=== PATIENT | female | born 1985 | race Caucasian/White ===

== ENCOUNTER 2018-06-05 11:37 | Inpatient (IN) | payer MEDICAID ==
[~2018-06-05] VITALS: Ht 157.5 cm; Wt 79.9 kg
[~2018-06-05 11:37] MED LIST: LIDOCAINE 2% (SDV) 5 ML INJ ONE; SEVOFLURANE 15 MIN ONE
[2018-06-05 11:48] VITALS: Ht 157.5 cm; Wt 79.9 kg
[2018-06-05] MEDS ORDERED: PREN-93 PO (11:50)
--- NOTE | 2018-06-05 12:13 | TRIAGE ---
OB Triage Datetime Report Generated by CPN: 06/05/2018 12:13 Datetime: 06/05/2018 11:57 Maternal Assessment Level of Consciousness: Fully Conscious DTR's/Clonus: DTRs 1+ Headache: Denies Blurred Vision: No Respiratory Effort: Unlabored Breath Sounds, Left: Clear and Equal Breath Sounds, Right: Clear and Equal Nausea/Vomiting: Denies RUQ Epigastric Pain: Denies Facial Edema: None Labor Evaluation Frequency: X3 Monitor Mode: External Duration (sec)2399: 50-70 Quality: Mild Pattern: Normal: <= 5 Contractions in 10 Minutes Resting Tone Vadito: Relaxed Heart Rate FHR Baseline Rate: 140 Monitor Mode: External US Variability: Moderate 6-25 bpm Accelerations: 10X10 Decelerations: Late; Variable Category: Category II Comments: BASELINE OF 140 BPM GOING DOWN FOR ABOUT 90 SEC AND COMING UP TO BASE LINE AFTER INTERVEN TIONS Pain Assessment Pain Scale: 9 Pain Presence: Intermittent Pain Type: Cramping Pain Location: Back Pain Goal: 3 Membrane Status: Bulging Datetime: 06/05/2018 11:46 Vaginal Exam Dilatation (cms): 3.0 Effacement (%): 90 Station: -2 Exam By: BERNARDO MAR Membrane Status: Bulging Vaginal Bleeding: Normal Show Cervix, Consistency: Soft Cervix, Position: Midposition Presentation 'A': Cephalic Datetime: 06/05/2018 11:43 Assessment Type: Triage Maternal Assessment Level of Consciousness: Fully Conscious DTR's/Clonus: DTRs 2+; No Clonus Headache: Denies Blurred Vision: No Respiratory Effort: Unlabored; Regular Rhythm; Equal Expansion Breath Sounds, Left: Clear and Equal Breath Sounds, Right: Clear and Equal Nausea/Vomiting: Denies RUQ Epigastric Pain: Denies Lower Extremities Edema: None Degree: None Upper Extremities Edema: None Degree: None Facial Edema: None Fall Risk Assessment History of Falling: (0) No Secondary Diagnosis: (0) No Ambulatory Aid: (0) Bedrest/Nurse Assist IV Therapy: (0) No Gait: (0) Normal/Bedrest/Immobile Mental Status: (0) Oriented to Own Ability Fall Score: 0 Fall Risk Score Definition: No Risk: No action required Datetime: 06/05/2018 11:41 EGA: 39.5 Datetime: 06/05/2018 11:40 Time of Arrival: 06/05/2018 11:40 Arrived By: Wheelchair Arrived From: Home Chief Complaint: PT CAME IN C/O LABOR Movement: Present Contractions: Irregular Rupture of Membranes: Denies Vaginal Discharge: Denies Recent Sexual Intercouse: Denies Abdominal Trauma: Not Applicable Additional Patient Complaints: NONE Time Provider Notified: 06/05/2018 11:53 Provider Notified: FLOR Initial Plan: DANIEL PICKARD
[2018-06-05] MEDS ORDERED: morphine 10 MG INJ ONE (12:35)
[2018-06-05] MEDS ORDERED: PROPOFOL 20 ML ONE (12:43)
[2018-06-05] MEDS ORDERED: ROCURONIUM 50 MG INJ ONE (12:43)
[2018-06-05] MEDS ORDERED: DEXAMETHASONE 4 MG/ML 1 ML INJ ONE (12:44)
[2018-06-05] MEDS ORDERED: OXYTOCIN 30 UNITS/LR 500 ML IV ONE (12:44)
[2018-06-05] MEDS ORDERED: SUCCINYLCHOLINE CHLORIDE 100 MG/5 ML SYG IV ONE (12:44)
[2018-06-05] MEDS ORDERED: ONDANSETRON 4 MG INJ ONE (12:46)
[2018-06-05] MEDS ORDERED: SUGAMMADEX SODIUM 200 MG/2 ML VIAL IV ONE (12:50)
--- NOTE | 2018-06-05 12:58 | OPPN ---
Date/Time of Note Date/Time of Note DATE: 06/05/18 TIME: 12:57 Operative Report Planned Procedure Free Text/Dictation called by nurses for bradycardia that is not recovering Procedure date Jun 05, 2018 Procedure(s) Primary c/section Performed by see signature line Pmo Project Manager: NARDA HENNING 2nd Pmo Project Manager none Pre-procedure diagnosis bradycardia down to 40,Not recovering [id number] Anesthesia Type: Wkxzl3d general Post-Procedure Post-procedure diagnosis same Findings Live Baby [], Apgars [] and [], weight [], position [], [] presentation []cord. Estimated Blood Loss: 600 - 700 mls Specimen(s) none Grafts/Implant(s) none Complication(s) none ANTONINO LACY M.D. Jun 05, 2018 12:58
--- NOTE | 2018-06-05 13:10 | PREAC ---
Date/Time of Note Date/Time of Note DATE: 06/05/18 TIME: 13:08 Anesthesia Eval and Record Evaluation Time Pre-Procedure Interview DATE: 06/05/18 TIME: 12:28 Age 33 Sex female NPO: 8 hrs Preoperative diagnosis bradycardia, prolonged deceleration Planned procedure emergency c section Past Medical History Past Medical History: Includes : Other ( bradycardia emergent c section) Surgery & Anesthesia Issues No known issue Meds Anticoagulation: No Beta Ilana within 24 hr: No Reason Beta Ilana not given: Pt. not on B-Ilana Reported Medications Vit No.124/Iron/FA ( Vitamin Tablet) 1 Each Tablet, 1 EACH PO, TAB 06/05/18 Meds reviewed: Yes Allergies Coded Allergies: No Known Allergy (Unverified , 06/05/18) Allergies Reviewed: Yes Labs/Studies Labs Reviewed: Reviewed by anesthesiologist test: Positive Pre-procedure Exam Airway: Adequate mouth opening, Adequate thyromental dist Mallampati: Mallampati II Teeth: Normal Lung: Normal Heart: Normal ASA Physical Status ASA physical status: 3 Emergency: E Planned Anesthetic General/MAC: ETT Planned Pain Management Parenteral pain med Pre-operative Attestations Prior to commencing anesthesia and surgery, the patient was re-evaluated, there was verification of: *The patient's identity *The results of appropriate recent lab work and preoperative vital signs *The above evaluation not changing prior to induction *Anesthetic plan, risk benefits, alternative and complications discussed with patient/family; questions answered; patient/family understands, accepts and wishes to proceed. KIERA MICHELLE Jun 05, 2018 13:10
--- NOTE | 2018-06-05 13:12 | PAC ---
Date/Time of Note Date/Time of Note DATE: 06/05/18 TIME: 13:11 Post-Anesthesia Notes Post-Anesthesia Note Last documented vital signs temp 97.6 bp 145/78 p 78 O2 sat 97% Activity: WNL Respiratory function: WNL Cardiovascular function: WNL Mental status: Baseline Pain reasonably controlled: Yes Hydration appropriate: Yes Nausea/Vomiting absent: Yes KIERA MICHELLE Jun 05, 2018 13:12
[2018-06-05] MEDS ORDERED: LACTATED RINGER'S 1,000 ML IV SCH (13:15)
[2018-06-05] MEDS ORDERED: OXYTOCIN 30 UNITS/LR 500 ML IV SCH ×2 (13:25→18:10)
[2018-06-05] MEDS ORDERED: CEFAZOLIN 2 GM/50 ML (PMX) 50 ML IVPB SCH ×2 (13:30→18:30)
[2018-06-05] MEDS ORDERED: ONDANSETRON 4 MG INJ IV PRN ×2 (13:30→16:00)
[2018-06-05] MEDS ORDERED: FENTAnyl 50 MCG/ML VIAL IV PRN ×3 (13:30)
[2018-06-05] MEDS ORDERED: CARBOPROST 250 MCG INJ IM PRN ×2 (13:30→18:30)
[2018-06-05] MEDS ORDERED: KETOROLAC 30 MG INJ IV PRN ×2 (13:30→16:00)
[2018-06-05] MEDS ORDERED: OXYTOCIN 30 UNITS/LR 500 ML IV PRN ×2 (13:30→18:30)
[2018-06-05] MEDS ORDERED: EPHEDrine SULFATE 50 MG/5 ML SYG IV PRN (13:30)
[2018-06-05] MEDS ORDERED: hydrALAzine 20 MG INJ IV PRN (13:30)
[2018-06-05] MEDS ORDERED: DIPHENHYDRAMINE 50 MG INJ IV PRN ×2 (13:30→16:00)
[2018-06-05] MEDS ORDERED: LABETALOL HCL 20MG INJ IV PRN (13:30)
[2018-06-05] MEDS ORDERED: METOCLOPRAMIDE 10 MG INJ IV PRN (13:30)
[2018-06-05] MEDS ORDERED: METHYLERGONOVINE 0.2 MG INJ IM PRN ×2 (13:30→18:30)
[2018-06-05] MEDS ORDERED: HYDROmorphONE 1 MG/5 ML IV SYRINGE IV PRN ×3 (13:30)
[2018-06-05] MEDS ORDERED: MISOPROSTOL 200 MCG TAB PR PRN ×2 (13:30→18:30)
[2018-06-05] MEDS ORDERED: MIDAZOLAM 1 MG/ML 2 ML INJ IV PRN (13:30)
[2018-06-05] MEDS ORDERED: MEPERIDINE 25 MG INJ IV PRN (13:30)
--- NOTE | 2018-06-05 15:49 | PAC ---
Date/Time of Note Date/Time of Note DATE: 06/05/18 TIME: 15:48 Post-Anesthesia Notes Post-Anesthesia Note Last documented vital signs temp 97.8 p 78 bp 117/74 O2 sat 98 Activity: WNL Respiratory function: WNL Cardiovascular function: WNL Mental status: Baseline Pain reasonably controlled: Yes Hydration appropriate: Yes Nausea/Vomiting absent: Yes KIERA MICHELLE Jun 05, 2018 15:49
[2018-06-05] MEDS ORDERED: NALOXONE (0.4 MG/ML) INJ IV PRN (16:00)
[2018-06-05] MEDS ORDERED: ZOLPIDEM 5 MG TAB PO PRN (16:00)
[2018-06-05] MEDS ORDERED: OXYCODONE/ACETAMINOPHEN (5/325) TAB PO PRN ×3 (16:00→18:30)
[2018-06-05] MEDS ORDERED: HYDROmorphONE 0.5 MG/0.5 ML SYG IV PRN ×2 (16:00)
--- NOTE | 2018-06-05 16:12 | PREOPHP ---
DATE OF ADMISSION: 06/05/2018 DATE OF PROCEDURE: 06/05/2018. HISTORY OF PRESENT ILLNESS: This is a 33-year-old, 1 para 0, at 39 weeks and 5 days' gestati onal age, admitted by another provider, by her private physician. Then, I was called by the nurse th at the patient had a bradycardia that is not recovering. I attended the room and heart r ate was around 40 and the bradycardia was not recovering. Immediate decision was made to do a stat c esarean section. The patient was immediately transferred to the operating room. The need for the C- section was discussed with the family and patient and they verbally agreed to the plan. PAST MEDICAL HISTORY: Denies. PAST SURGICAL HISTORY: Denies. ALLERGIES: NKDA. PHYSICAL EXAMINATION: VITAL SIGNS: Stable. ABDOMEN: Gravid. VAGINAL EXAM: She was 3 cm, 70% effaced and position of the head was -2. ASSESSMENT AND PLAN: A 33-year-old, 1 para 0, at 39 weeks and 5 days' gestational age with f etal bradycardia that did is not recovering. The decision was made to do a stat section. R isks and benefits discussed with the patient and the patient was taken to the operating room. Dictated By: ANTONINO BAHENA/NTS Conf#: [id number] DID#: [id number] CC: ESTHER RAY MD;*EndCC*
--- NOTE | 2018-06-05 16:23 | OPR ---
DATE OF OPERATION: 06/05/2018 PREOPERATIVE DIAGNOSIS: bradycardia that did not recover down to 40, category 3 tracing. POSTOPERATIVE DIAGNOSIS: bradycardia that did not recover down to, category 3 tracing. OPERATION PERFORMED: Primary section. ATTENDING SURGEON: Jey Lacy MD TRACTOR DRIVER: Kelechi Guo MD ANESTHESIOLOGIST: Rolf Solorzano MD ANESTHESIA: General. COMPLICATIONS: None. ESTIMATED BLOOD LOSS: 600 mL TECHNIQUE: The patient was taken to the operating room where general anesthesia was found to be adeq uate. The patient was placed in supine position. After prep and drape, a Pfannenstiel incision was made 2 cm above the symphysis pubis, which was extended to the underlying fascia. Fascia was nicked in the midline. Fascial incision was extended bilaterally. Muscle was in the midline. Pe ritoneum was entered sharply. Peritoneal incision was extended. Bladder blade was placed inside the pelvic cavity. Lower uterine segment incision was made using a vacuum. Baby was delivered vertex a nd handed to the NICU team. Cord gases sent. Cord blood sent. Placenta was removed manually. Uter us was exteriorized. Intrauterine cavity was cleaned using 2 sponges. There was a thick meconium ar ound the baby. There was some endometriosis ____ on the uterus ____ was cauterized. The lower uteri ne segment incision was closed in 2 layers using 0 looped PDS sutures. Gutters were cleaned. Uterus was inserted inside the abdominal cavity. A piece of Fibrillar was placed on top of the incision. Peritoneum and muscles were reapproximated using 2-0 chromic sutures. Fascia was closed in a running nonlocking fashion using 0 looped PDS sutures. Subcutaneous tissue was closed using plain sutures. Skin was closed using Insorb and Dermabond was placed on top of the incision. The patient tolerated the procedure well and was transferred to recovery room in stable condition. There was no complicat ion regarding this surgery. Dictated By: JEY LACY MD RG/NTS Conf#: [id number] DID#: [id number] CC: ESTHER RAY MD;*EndCC*
[2018-06-05 16:30] VITALS: BP 128/71; PULSE 70; RESP 18
[2018-06-05] MEDS: HYDROmorphONE 0.2 MG/ML PCA IV SCH ×2 (17:11→23:38)
[2018-06-05 18:20] VITALS: BP 122/65; PULSE 77; RESP 20
[2018-06-05] MEDS ORDERED: NACL 0.9% 3 ML SYG IV SCH (18:30)
[2018-06-05 19:50] VITALS: BP 111/55; PULSE 77; RESP 18
[2018-06-05] MEDS: SENNA/DOCUSATE NA (8.6MG/50MG) TAB PO SCH (21:00)
[2018-06-06] VITALS: BP 100/58; PULSE 75; RESP 17
[2018-06-06] MEDS: CEFAZOLIN 2 GM/50 ML (PMX) 50 ML IVPB SCH ×2 (00:32→09:34)
[2018-06-06 04:00] VITALS: BP 100/51; PULSE 80; RESP 18
[2018-06-06] MEDS: LACTATED RINGER'S 1,000 ML IV SCH ×2 (05:44→13:15)
[2018-06-06 08:00] VITALS: BP 102/55; PULSE 73; RESP 17
[2018-06-06] MEDS: SENNA/DOCUSATE NA (8.6MG/50MG) TAB PO SCH ×2 (09:00→21:47)
[2018-06-06] MEDS ORDERED: LIDOCAINE/MYLANTA 40 ML BTL PO ONE (10:30)
[2018-06-06] MEDS: IBUPROFEN 600 MG TAB PO SCH ×3 (12:37→23:57)
[2018-06-06 16:00] VITALS: BP 105/59; PULSE 71; RESP 18
--- NOTE | 2018-06-06 18:30 | PN ---
Date/Time of Note Date/Time of Note DATE: 06/06/18 TIME: 18:26 OB Subjective Subjective Subjective POD#1 Patient is doing well. She denies nausea, vomiting, shortness of breath, chest pain, headache. She has been ambulating without difficulty, tolerating regular diet. Pain is well controlled on current medications OB Objective Objective Objective Vital Signs Date Temp Pulse Resp B/P (MAP) Pulse Ox O2 O2 Flow FiO2 Time Delivery Rate 06/06/18 98.0 71 18 105/59 Room Air 16:00 (74) 06/06/18 97 08:00 General: AAO X 3, comfortable, NAD, appropriate mood and affect. Heart: RRR +S1, +S2, no murmurs. Lungs: Clear to auscultation (B/L), no rales, rhonchi or wheezing. ABD: +BS. Soft, non-tender. Uterus 2 cm below umbilicus Incision: Dry dressing Flank: No CVA tenderness (B/L) LE: Mild edema. No clubbing, cyanosis, thigh or calf tenderness (B/L). Homans 'sign is negative OB Assessment/Plan Other plan: 33 years old 1 para 1001 s/p primary delivery. POD#1 - AF, VSS - Contraception methods with R/B/A/FR discussed - Continue care - Encourage ambulation and using incentive spirometry - CBC result discussed with pt. Repeat CBC on 06/08/18 NARDA HENNING Jun 06, 2018 18:30
[2018-06-06 19:35] VITALS: BP 120/73; PULSE 99; RESP 18
[2018-06-07] MEDS: PIPER-TAZO 3.375 GM IV (PMX) 100 ML IVPB SCH ×3 (01:56→17:53)
[2018-06-07 03:40] VITALS: BP 103/65; PULSE 76; RESP 20
[2018-06-07] MEDS: IBUPROFEN 600 MG TAB PO SCH ×3 (05:44→17:08)
[2018-06-07 08:00] VITALS: BP 124/71; PULSE 77; RESP 16
--- NOTE | 2018-06-07 09:00 | OPPN ---
Date/Time of Note Date/Time of Note DATE: 06/07/18 TIME: 08:59 Anesthesia Follow up Anesthesia Follow up Last documented vital signs Vital Signs Date Temp Pulse Resp B/P (MAP) Pulse Ox O2 O2 Flow FiO2 Time Delivery Rate 06/07/18 98.9 76 20 103/65 Room Air 03:40 (78) 06/06/18 97 08:00 Comments satisfactory pain management with intrathecal duramorph analgesia. no complications KIERA MICHELLE Jun 07, 2018 09:00
--- NOTE | 2018-06-07 09:23 | OPPN ---
Date/Time of Note Date/Time of Note DATE: 06/07/18 TIME: 09:22 Anesthesia Follow up Anesthesia Follow up Last documented vital signs Vital Signs Date Temp Pulse Resp B/P (MAP) Pulse Ox O2 O2 Flow FiO2 Time Delivery Rate 06/07/18 98.9 76 20 103/65 Room Air 03:40 (78) 06/06/18 97 08:00 Respiratory function: WNL Cardiovascular function: WNL Comments satisfactory post operative pain management with intrathecal duramorph KIERA MICHELLE Jun 07, 2018 09:23
[2018-06-07] MEDS: SENNA/DOCUSATE NA (8.6MG/50MG) TAB PO SCH ×2 (10:32→20:55)
--- NOTE | 2018-06-07 14:35 | PN ---
Date/Time of Note Date/Time of Note DATE: 06/07/18 TIME: 14:32 OB Subjective Subjective Subjective Patient pumping. Pain well controlled with p.o. pain medication. Passed flat us. Urinated. Denies any chest pain or shortness of breath OB Objective Objective Objective GA: A&O, NAD Abdomen : Soft, appropriate tenderness in the incision noted. Incision: Clean dry and intact Breast: No evidence of mastitis or fissure Extremity: No calf tenderness, no click no edema no cord palpable Lungs: Clear to auscultation bilaterally CV: RRR VS - Last 72 Hours, by Label Date Temp Pulse Resp B/P (MAP) Pulse Ox O2 O2 Flow FiO2 Time Delivery Rate 06/07/18 98.9 77 16 124/71 Room Air 08:00 (88) 06/07/18 98.9 76 20 103/65 Room Air 03:40 (78) 06/06/18 98.9 99 18 120/73 Room Air 19:35 (89) 06/06/18 98.0 71 18 105/59 Room Air 16:00 (74) 06/06/18 98.1 73 17 102/55 97 Room Air 08:00 (71) 06/06/18 98.9 80 18 100/51 95 04:00 (67) 06/06/18 98.3 75 17 100/58 98 00:00 (72) 06/05/18 98.2 77 18 111/55 96 19:50 (73) 06/05/18 98.2 77 20 122/65 97 Room Air 18:20 (84) 06/05/18 97.9 70 18 128/71 94 Room Air 16:30 (90) OB Assessment/Plan Other Assessment: POD #2 S/p repeat section Leukocytosis, unclear etiology, on Abx, UA , CBC today Routine post op care Continue antibiotics follow up with the results REBEKA CRESPO MD Jun 07, 2018 14:35
[2018-06-07 15:37] VITALS: BP 106/68; PULSE 75; RESP 18
[2018-06-07 20:22] VITALS: BP 104/54; PULSE 74; RESP 18
[2018-06-08] MEDS: PIPER-TAZO 3.375 GM IV (PMX) 100 ML IVPB SCH ×2 (02:06→10:31)
[2018-06-08] MEDS: IBUPROFEN 600 MG TAB PO SCH ×4 (02:13→18:16)
[2018-06-08 04:00] VITALS: BP 99/51; PULSE 83; RESP 18
[2018-06-08 08:20] VITALS: BP 113/66; PULSE 73; RESP 18
[2018-06-08] MEDS ORDERED: DIPHTH/TET/ACEL PERTUSS (ADULT) 0.5 ML VIAL IM* ONE (09:00)
[2018-06-08] MEDS: SENNA/DOCUSATE NA (8.6MG/50MG) TAB PO SCH (10:27)
[2018-06-08 15:45] VITALS: BP 122/70; PULSE 68; RESP 16
--- NOTE | 2018-06-08 18:01 | DS ---
Date/Time of Note Date/Time of Note DATE: 06/08/18 TIME: 17:59 Obstetrical Discharge Record Final Diagnosis Final Diagnosis: Term delivered Other Final Diagnosis profound bradycardia Section Section: Primary Complications Augmentation: No Induction: No Rupture of Membranes: No Condition on Discharge Physical Assessment [place]als[place] [address] Voiding: Yes Bowel Movement: Yes Breast: Soft, non-tender Fundus: Firm Abdomen and Incision: soft wound dry Episiotomy: n/a Calf Tenderness: No Patient Condition: Stable ALVIN BADILLO MD Jun 08, 2018 18:01
--- NOTE | 2018-06-08 18:04 | PD.PPDC ---
MEAT SEAFOOD ASSOCIATE Discharge Instruction Diagnosis Zeqxw2Sj Final Diagnosis: Njosa6z s/p primary c/s for CAT III Condition Navrp3Wm Patient Condition: Objya3f Stable Diet Ximno5Bj Diet: Lyfhy5l Resume Regular Diet Activity/Restrictions Skieb1Aa Activity: Jnaxz0o May Shower Jcmkc2Vd Restrictions: Hwmga4v No Exercising No Lifting Minimize Stair-climbing No Sexual Activity Nothing in the Vagina No [place] No Tampons, douche Wound/Drain Care Instructions [id number] Wound/Drain Care Instructions: Vzsze1c Wash with soap and water Keep clean and dry Follow-up Follow-up with Physician: 2, Week/Weeks Return to clinic for Xbhfy4Xa [employer] OPERATOR Instructions: Mwffn7k Fever greater than 101 Chills Excessive Vaginal Bleeding More than 2 pads per hour Unable to tolerate diet Mvjdt8Gg OB Instructions: Wxtlm9w Breast Tenderness Depression Blurried Vision Headache [id number] Surgical Instructions: Auryw5s Incisional Drainage Incisional Redness ALVIN BADILLO MD Jun 08, 2018 18:04
--- NOTE | 2018-06-09 20:49 | DELSUM ---
Delivery Summary A-C Datetime Report Generated by CPN: 06/09/2018 20:49 DELIVERY PERSONNEL Film Replacement Orderer: Soleimani, Carmella MATERNAL INFORMATION Delivery Anesthesia: General Medications in Delivery: SEE ANESTHESIA RECORD Placenta Cultured: Yes Maternal Complications: Other Other Maternal Complications: FHT DECELS LABOR SUMMARY EDC: 06/07/2018 00:00 No. Babies in Womb: 1 Attempted: No Labor Anesthesia: None LABOR INFORMATION Reason for Induction: Not Applicable Oxytocin: N/A Group B Beta Strep: Negative Antibiotics # of Doses: 0 Steroids Given: None Reason Steroids Not Administered: Not Applicable MEMBRANES Membranes Rupture Method: Artificial Rupture of Membranes: 06/05/2018 12:35 Length of Rupture (hr): 0.00 Amniotic Fluid Color: Heavy Meconium Amniotic Fluid Amount: Moderate Amniotic Fluid Odor: None STAGES OF LABOR Stage 3 hr: 0 Stage 3 min: -1 CSECTION DELIVERY Primary Indication: Other Other Primary Indication: CATEGORY 3 TRACING Secondary Indication: N/A CSection Urgency: Emergency CSection Incidence: Primary Labor: Labor Elective: Nonelective CSection Incision: Lower Uterine Transverse BABY A INFORMATION Delivery Date/Time: 06/05/2018 12:35 Method of Delivery: Born in Route : No : N/A Forceps: N/A Vacuum Extraction: Successful Shoulder Dystocia : No SHOULDER DYSTOCIA BABY A Delivery Date/Time: 06/05/2018 12:35 PRESENTATION/POSITION BABY A Presentation: Cephalic Cephalic Presentation: Vertex Vertex Position: Left Occipital Anterior Breech Presentation: N/A PLACENTA INFORMATION BABY A Placenta Delivery Time : 06/05/2018 12:34 Placenta Method of Delivery: Manual Removal Placenta Status: Delivered SCORES BABY A Heart Rate 1 min: >100 bpm Resp Effort 1 min: Absent Reflex Irritability 1 min: No Response Muscle Tone 1 min: Flaccid Color 1 min: Blue/Pale Resuscitation Effort 1 min: Tactile Stimulation; Oxygen; PPV/NCPAP SCORE 1 MIN: 2 Heart Rate 5 min: >100 bpm Resp Effort 5 min: Slow, Irregular Reflex Irritability 5 min: No Response Muscle Tone 5 min: Flaccid Color 5 min: Completely [place] Resuscitation Effort 5 min: Tactile Stimulation; Oxygen; PPV/NCPAP; Endotracheal Intubation SCORE 5 MIN: 5 Heart Rate 10 min: >100 bpm Resp Effort 10 min: Slow, Irregular Reflex Irritability 10 min: [place] Muscle Tone 10 min: Flaccid Color 10 min: Completely [place] Resuscitation Effort 10 min: Oxygen; PPV/NCPAP; Endotracheal Intubation SCORE 10 MIN: 6 Heart Rate 15 min: >100 bpm Resp Effort 15 min: Slow, Irregular Reflex Irritability 15 min: [place] Muscle Tone 15 min: Some Flexion of Extrem Color 15 min: Completely [place] Resuscitation Effort 15 min: Oxygen; Endotracheal Intubation SCORE 15 MIN: 7 INFORMATION BABY A Gestational Age at Delivery: 39.5 Gestational Status: Full Term- 39- 40.6 Weeks Infant Outcome : Liveborn Condition : Critical Infant Sex: Male IDENTIFICATION/MEDS BABY A ID Band Number: [id number] ID Band Location: Right Leg; Left Arm Sensor Applied: No Sensor Location : Cord Clamp Vitamin K Given : Not Given Erythromycin Given: Not Given WEIGHT/LENGTH BABY A Infant Birthweight (gm): 3025 Infant Weight (lb): 6 Infant Weight (oz): 11 Length (in): 20.25 Length (cm): 51.44 CORD INFORMATION BABY A No. Cord Vessels: 3 Nuchal Cord : OTHER Nuchal Cord- Other: around body Cord Blood Taken: Yes Suction: Mouth; Nose ASSESSMENT BABY A Complications: Meconium Physical Findings at Delivery: Within Normal Limits Highway Worker/ALS Called : Yes Infant Care By: DENNIS/HEATHER Transferred To: NICU
== END 2018-06-08 20:10 | disposition home or self-care (01) | DRG 788 ==
LOC: L-D 11:37 → OBT 11:37 → L-D 11:53 → OBT 12:08 → L-D 12:29 → PP1 18:20
PROVIDERS: ADMIT Obstetrics & Gynecology; ATTEND Obstetrics & Gynecology
PROC: 0U590ZZ Destruction of Uterus, Open Approach (ICD-10-PCS; 2018-06-05)
PROC: 10D00Z1 Extraction of Products of Conception, Low, Open Approach (ICD-10-PCS; principal; 2018-06-05 12:30)
DX: O76 Abnormality in fetal heart rate and rhythm complicating labor and delivery (principal); O77.0 Labor and delivery complicated by meconium in amniotic fluid; O99.89 Other specified diseases and conditions complicating pregnancy, childbirth and the puerperium; N80.0 Endometriosis of uterus; Z3A.39 39 weeks gestation of pregnancy; Z37.0 Single live birth
CPT/HCPCS: 36600; 81001; 82803; 85025; 85610; 85730; 86592; 86850; 86900; 86901; 87340; 88307; 99464; G0463; J0690; J1100; J1170; J1885; J2270; J2405; J2543; J2590; J7120

== ENCOUNTER 2018-07-17 13:28 | Emergency (ER) | payer MEDICAID ==
[~2018-07-17] VITALS: Wt 73.3 kg
[~2018-07-17 13:28] MED LIST changes: -LIDOCAINE 2% (SDV) 5 ML INJ ONE; +PREN-93 PO; -SEVOFLURANE 15 MIN ONE
[2018-07-17 13:31] VITALS: BP 125/59; PULSE 67; RESP 18
[2018-07-17] MEDS ORDERED: ACET500C5 PO (16:08)
--- NOTE | 2018-07-17 18:18 | ERD ---
ER Documentation Chief Complaint Chief Complaint SITE CHECK HPI 33-year-old female patient with no significant past medical history presents the ED stating that she would like a wound check for her site. States that she is concerned that there is a tiny bump inferior to the right side of her surgical site and it feels like a sharp sensation. Rates her pain a 3 out of 10. Reports that she had a on June 05, 2017. Denies any fever, chills, purulent discharge on the surgical site. Denies any abdominal pain, chest pain, shortness of breath, fever, chills, vomiting, diarrhea, constipation. Patient is eating appropriately, tolerating oral intake and has normal bowel movements and good urine output. Denies any vaginal bleeding, dysuria, urgency, frequency. ROS All systems reviewed and are negative except as per history of present illness. Medications Home Meds Active Scripts Acetaminophen* (Tylophen*) 500 Mg Capsule, 1 CAP PO Q6H PRN for PAIN AND OR ELEVATED TEMP, #20 CAP Prov:TAE GAGE PA-C 07/17/18 Reported Medications Vit No.124/Iron/FA ( Vitamin Tablet) 1 Each Tablet, 1 EACH PO, TAB 06/05/18 Allergies Allergies: Coded Allergies: No Known Allergy (Unverified , 06/05/18) PMhx/Soc Medical and Surgical Hx: pt denies Medical Hx History of Surgery: Yes (C SECTION) Anesthesia Reaction: No Hx Alcohol Use: No Hx Substance Use: No Hx Tobacco Use: No Smoking Status: Never smoker FmHx Family History: No diabetes, No coronary disease Physical Exam Vitals Vital Signs Date Temp Pulse Resp B/P (MAP) Pulse Ox O2 O2 Flow FiO2 Time Delivery Rate 07/17/18 98.1 67 18 125/59 99 13:31 (81) Physical Exam Const: [id number]-[id number], well-nourished. In no acute distress. Head: Atraumatic, normocephalic Eyes: Normal Conjunctiva without injection. No purulent discharge. ENT: Normal external ear, nose. Moist oropharynx without tonsillar exudates. Non-erythematous pharynx. Uvula midline. No drooling. No trismus. Neck: No cervical midline tenderness. Full range of motion. No meningismus. No cervical lymphadenopathy. No JVD. Resp: Clear to auscultation bilaterally. No wheezing, rhonchi, rales, or crackles. No accessory muscle use. No retractions. Cardio: Regular rate and rhythm. No murmurs, rubs or gallops. Abd: Soft, nontender, non distended. Normal bowel sounds. No palpable masses. No rebound tenderness. No guarding. Negative McBurney's point. Negative psoas sign. Negative obturator sign. Skin: No petechiae or rashes. Palpable 1 cm nodule noted at the inferior portion of the right side of patient's site. Back: No midline tenderness. No CVA tenderness. Ext: No cyanosis, or edema. Neur: Awake and alert. Normal gait. Normal coordination. Psych: Normal Mood and Affect Procedures/MDM 33-year-old female patient with no sniffing past medical history presents to ED complaining of a palpable lump inferior to the right side of her surgical site. Patient is afebrile and nontoxic-appearing. Ultrasound of the soft tissue was ordered to further evaluate patient. IMPRESSION: 1. Small heterogeneous iso- to hypoechoic lesion in the area of reported palpable lump in the anterior abdominal wall, inferior to the right lateral aspect of scar. Sonographic findings are nonspecific. If further imaging evaluation is desired, contrast enhanced MRI could be obtained. Differentials include keloid scar. Low suspicion for anaphylaxis, scabies, SJS/TEN, TSS, Lyme's Disease, syphilis, RMSF, shingles, disseminated gonorrhea chlamydia, DIC, TTP, ITP, erythema multiforme, sepsis, cellulitis, necrotizing fasciitis, gangrene, meningococcemia, allergic contact dermatitis, urticaria, eczema, tinea infection, or other emergent conditions. Diagnosis: Post Op Pain Follow up with primary care physician in 1-2 days. Instructed patient to return to the ED sooner for any worsening symptoms. Patient's questions were answered. Patient is hemodynamically stable. Patient understood and agreed with discharge plan. Patient discharged stable. Disclaimer: Inadvertent spelling and grammatical errors are likely due to EHR/dictation software use and do not reflect on the overall quality of patient care. Also, please note that the electronic time recorded on this note does not necessarily reflect the actual time of the patient encounter. Departure Diagnosis: Primary Impression: Post-op pain Condition: Stable Patient Instructions: Post Op Wound Check, General, Post Op Wound Check, Pain Referrals: [facility] YOU HAVE RECEIVED A MEDICAL SCREENING EXAM AND THE RESULTS INDICATE THAT YOU DO NOT HAVE A CONDITION THAT REQUIRES URGENT TREATMENT IN THE EMERGENCY DEPARTMENT. FURTHER EVALUATION AND TREATMENT OF YOUR CONDITION CAN WAIT UNTIL YOU ARE SEEN IN YOUR DOCTORS OFFICE WITHIN THE NEXT 1-2 DAYS. IT IS YOUR RESPONSIBILITY TO MAKE AN APPOINTMENT FOR FOLOW-UP CARE. IF YOU HAVE A PRIMARY DOCTOR --you should call your primary doctor and schedule an appointment IF YOU DO NOT HAVE A PRIMARY DOCTOR YOU CAN CALL OUR PHYSICIAN REFERRAL HOTLINE AT IF YOU CAN NOT AFFORD TO SEE A PHYSICIAN YOU CAN CHOSE FROM THE FOLLOWING [facility] [address] [facility]. [facility] [address] [facility]. [facility] [address] [facility] [address] [facility]. [facility] [address] [facility]. [facility] [address] [facility] [address]. [facility] YOU HAVE RECEIVED A MEDICAL SCREENING EXAM AND THE RESULTS INDICATE THAT YOU DO NOT HAVE A CONDITION THAT REQUIRES URGENT TREATMENT IN THE EMERGENCY DEPARTMENT. FURTHER EVALUATION AND TREATMENT OF YOUR CONDITION CAN WAIT UNTIL YOU ARE SEEN IN YOUR DOCTORS OFFICE WITHIN THE NEXT 1-2 DAYS. IT IS YOUR RESPONSIBILITY TO MAKE AN APPOINTMENT FOR FOLOW-UP CARE. IF YOU HAVE A PRIMARY DOCTOR --you should call your primary doctor and schedule and appointment IF YOU DO NOT HAVE A PRIMARY DOCTOR YOU CAN CALL OUR PHYSICIAN REFERRAL HOTLINE AT . IF YOU CAN NOT AFFORD TO SEE A PHYSICIAN YOU CAN CHOSE FROM THE FOLLOWING [facility]: [facility] [address] [place] [address] [facility] [address] [place] [address] [facility] [address] [place] [address] [facility] URGENT CARE/SPECIALTIES Additional Instructions: Llame al doctor PETRA y magdy soraida RENETTA PARA DENTRO DE 2-3 ALAN.Dgale a la secretaria que nosotros le instruimos hacer esta renetta.Avise o llame si smith condicin se empeora antes de la renetta. Regresa aqui si peor o no mejor. TAE GAGE PA-C July 17, 2018 18:18
== END 2018-07-17 16:19 | disposition home or self-care (01) ==
LOC: FTE 13:28
DX: G89.18 Other acute postprocedural pain (principal)
CPT/HCPCS: 76536; Z7502